=== PATIENT | female | born 1980 | race Caucasian/White ===

== ENCOUNTER 2022-09-05 22:03 | Emergency (ER) | payer MEDICARE, MEDICAID, SELFPAY ==
[2022-09-05 22:08] VITALS: BP 170/100; PULSE 132; RESP 18; TEMP 36.9; O2SAT 98
[2022-09-05 22:12] VITALS: BP 157/100; PULSE 126; RESP 16; O2SAT 99
--- NOTE | 2022-09-05 22:26 | ED.C_ITS ---
HPI - Psych General: Chief Complaint: Psychiatric Symptoms Stated Complaint: depression, MHE Time Seen by Provider: 09/05/22 22:09 Source: patient Mode of arrival: ambulatory Limitations: no limitations History of Present Illness: 41-year-old female who states that she has been in the [facility] care home for 90 days she is released today as a court order that she is to come to the ER for a psych eval and is to go to [facility]. She states that she supposed go to [facility] for alcoholism she states she used to be on medicines and she is currently out as well. She denies any suicidal or homicidal ideations at this time. Associated symptoms: Reports depression; Deny homicidal ideation or suicidal ideation Review of Systems Const: Denies: fever(s) or chills ENMT: Denies: throat pain or dental pain Card: Denies: chest pain Resp: Denies: dyspnea GI: Denies: abdominal pain, nausea, vomiting or diarrhea Musc: Denies: neck pain or back pain Skin/Breast: Denies: rash Neuro: Denies: headache(s) Psych: Reports: depression; Denies: suicidal ideation or homicidal ideation Physical Exam Const: COMMON NORMALS: no acute distress, patient oriented x3 and healthy appearing HENMT: COMMON NORMALS: normocephalic and atraumatic HEAD & SCALP: normocephalic and atraumatic Neck/C-Spine: COMMON NORMALS: full ROM Chest: COMMONS NORMALS: normal inspection of the chest Resp: COMMON NORMALS: normal respiratory effort Cardio: COMMON NORMALS: regular rate, regular rhythm and No murmurs present (Cardio) RATE: regular rate RHYTHM: regular rhythm GI: INSPECTION: Yes normal to inspection Extremity: COMMON NORMALS: normal to inspection and full ROM Neuro: COMMON NORMALS: patient oriented x3, moves all extremities and no focal motor deficits Psych: COMMON NORMALS: mental status grossly normal, Normal thought process present and cooperative THOUGHT PROCESS: Normal thought process present Skin: COMMON NORMALS: no rashes or lesions noted and no wounds GENERAL SKIN EXAM: no rashes or lesions noted Course Vital Signs: Vital signs: Vital Signs Temperature 98.4 F 09/05/22 22:08 Pulse Rate 132 H 09/05/22 22:08 Respiratory Rate 18 09/05/22 22:08 Blood Pressure 170/100 09/05/22 22:08 Pulse Oximetry 98 09/05/22 22:08 Oxygen Delivery Me thod Room Air 09/05/22 22:08 MDM - Psych Medical Decision Making Patient presents here after being released from care home she been in care home for 90 days for DUI that set her up here she is not really sure what meds she is on I had her evaluated by psychiatry who feels she is stable for discharge with plan going to the crisis stabilization unit in the morning she agrees with this plan. Medical Records I reviewed the patient's medical records. Lab Data I reviewed the patient's lab results. 09/05/22 23:00 09/05/22 23:00 Laboratory Results WBC 11.1 10^3/uL (4.0-10.0) H 09/05/22 23:00 RBC 4.24 10^6/uL (4.1-5.3) 09/05/22 23:00 Hgb 10.9 g/dL (11.5-15.3) L 09/05/22 23:00 Hct 34.4 % (37.0-47.0) L 09/05/22 23:00 MCV 81.1 fl (81-99) 09/05/22 23:00 MCH 25.7 pg (28.0-34.0) L 09/05/22 23:00 MCHC 31.7 g/dL (30.0-36.0) 09/05/22 23:00 RDW 14.9 % (12.1-15.1) 09/05/22 23:00 Plt Count 476 10^3/cmm (130-400) H 09/05/22 23:00 MPV 10.5 fL (7.4-10.4) H 09/05/22 23:00 Neut % (Auto) 67.7 % 09/05/22 23:00 Lymph % (Auto) 24.6 % 09/05/22 23:00 [place] % (Auto) 6.5 % 09/05/22 23:00 Eos % (Auto) 0.1 % 09/05/22 23:00 Baso % (Auto) 0.7 % 09/05/22 23:00 Neut # (Auto) 7.49 10^3/uL (1.8-7.7) 09/05/22 23:00 Lymph # (Auto) 2.7 10^3/uL (0.8-4.8) 09/05/22 23:00 [place] # (Auto) 0.7 10^3/uL (0.2-0.9) 09/05/22 23:00 Eos # (Auto) 0.0 10^3/uL (0.0-0.8) 09/05/22 23:00 Baso # (Auto) 0.1 10^3/uL (0.0-0.1) 09/05/22 23:00 Nucleated RBC % (auto) 0 % 09/05/22 23:00 Nucleated RBCs # 0.0 /100WBC 09/05/22 23:00 Sodium 138 mmol/L (136-145) 09/05/22 23:00 Potassium 3.9 mmol/L (3.5-5.1) 09/05/22 23:00 Chloride 104 mmol/L (98-107) 09/05/22 23:00 Carbon Dioxide 19 mmol/L (22-29) L 09/05/22 23:00 Anion Gap 18.9 (5-19) 09/05/22 23:00 BUN 10 mg/dL (6-20) 09/05/22 23:00 Creatinine 0.8 mg/dL (0.5-0.9) 09/05/22 23:00 GFR Calculation 78.3 mL/min (90-130) L 09/05/22 23:00 Glucose 141 mg/dL (65-115) H 09/05/22 23:00 Calculated Osmolality 287 mOsm/kg (285-295) 09/05/22 23:00 Calcium 8.9 mg/dL (8.5-10.5) 09/05/22 23:00 Total Bilirubin 0.3 mg/dL (0.15-1.2) 09/05/22 23:00 AST 16 U/L (0-32) 09/05/22 23:00 ALT 6 U/L (0-33) 09/05/22 23:00 Alkaline Phosphatase 80 U/L (35-105) 09/05/22 23:00 Total Protein 7.8 g/dL (6.6-8.7) 09/05/22 23:00 Albumin 4.1 g/dL (3.5-5.2) 09/05/22 23:00 Globulin 3.7 g/dL (1.3-4.6) 09/05/22 23:00 Salicylates < 0.3 mg/dL (3-10) L 09/05/22 23:00 Acetaminophen < 5.0 ug/mL (10-30) L 09/05/22 23:00 Ethyl Alcohol < 10 mg/dL (0-10) 09/05/22 23:00 Discharge Plan Discharge Patient Disposition: Home Clinical Impression: Alcohol abuse Condition: Stable Discharge Orders: Discharge ED (Routine); Ordered 09/06/22 Ordered By: Alonso Devlin Referrals: Yeni Christie MD [Primary Care Provider] - 1-3 days Discharge Diet: Advance as tolerated Discharge Activity: Resume usual activity Patient Instructions: Abuse of Alcohol (ED) Coding Level of Care Code ED Certified Home Health Aide for Cheyenne Hilario
[2022-09-05] MEDS: labetalol 5 mg/mL SDV 20mL 10 MG IVP (22:44)
[2022-09-05 22:57] VITALS: BP 160/90; PULSE 98
[2022-09-05 23:26] LABS: Basophils # 0.1 10^3/uL (0.0-0.1); Basophils % 0.7 %; Eosinophils % 0.1 %; Hematocrit 34.4 % (37.0-47.0); Hemoglobin 10.9 g/dL (11.5-15.3); Lymphocytes # 2.7 10^3/uL (0.8-4.8); Lymphocytes % 24.6 %; Mean Corpuscular HGB Conc 31.7 g/dL (30.0-36.0); Mean Corpuscular Hemoglobin 25.7 pg (28.0-34.0); Mean Corpuscular Volume 81.1 fl (81-99); Mean Platelet Volume 10.5 fL (7.4-10.4); Monocytes # 0.7 10^3/uL (0.2-0.9); Monocytes % 6.5 %; Neutrophils # 7.49 10^3/uL (1.8-7.7); Neutrophils % 67.7 %; Nucleated Red Blood Cells % 0 %; Platelet Count 476 10^3/cmm (130-400); Red Blood Count 4.24 10^6/uL (4.1-5.3); Red Cell Distribution Width 14.9 % (12.1-15.1); White Blood Count 11.1 10^3/uL (4.0-10.0)
[2022-09-05 23:42] VITALS: BP 142/109; PULSE 105; O2SAT 98
[2022-09-05 23:47] LABS: Alanine Aminotransferase 6 U/L (0-33); Albumin Level 4.1 g/dL (3.5-5.2); Alkaline Phosphatase 80 U/L (35-105); Blood Urea Nitrogen 10 mg/dL (6-20); Calcium 8.9 mg/dL (8.5-10.5); Carbon Dioxide 19 mmol/L (22-29); Chloride 104 mmol/L (98-107); Globulin 3.7 g/dL (1.3-4.6); Glomerular Filtration Rate 78.3 mL/min (90-130); Glucose 141 mg/dL (65-115); Osmolality Calculated 287 mOsm/kg (285-295); Sodium 138 mmol/L (136-145); Total Bilirubin 0.3 mg/dL (0.15-1.2); Total Protein 7.8 g/dL (6.6-8.7)
[2022-09-05] MEDS: LORazepam 2 mg/mL INJ 1 mL 1 MG IVP (23:47)
[2022-09-05 23:58] LABS: Acetaminophen < 5.0 ug/mL (10-30); Alcohol Level < 10 mg/dL (0-10); Anion Gap 18.9 (5-19); Aspartate Amino Transferase 16 U/L (0-32); Potassium 3.9 mmol/L (3.5-5.1); Salicylate < 0.3 mg/dL (3-10)
[2022-09-06 00:59] VITALS: BP 164/121; PULSE 91; RESP 16; O2SAT 95
== END 2022-09-06 01:03 | disposition home or self-care (01) ==
PROVIDERS: Emergency Provider Emergency Medicine; PCP Family Medicine
DX: F10.10 Alcohol abuse, uncomplicated (principal)
CPT/HCPCS: 80053; 80307; 85025; 96374; 96375; 99284; J2060; J3490; Q3014

== ENCOUNTER 2025-01-11 12:27 | Outpatient (CLI) | payer OTHER, MEDICAID, SELFPAY ==
--- NOTE | 2025-01-11 12:40 | MM_ITS ---
WS: [id number] BILATERAL 3D TOMOSYNTHESIS DIGITAL SCREENING MAMMOGRAPHY WITH CAD CLINICAL INFORMATION: SCREENING HISTORY: Screening mammogram. No current complaints. COMPARISON: 2010 TECHNIQUE: Bilateral CC and MLO views. FINDINGS: Scattered fibroglandular densities bilaterally. No suspicious focal mass, asymmetry, calcifications, or architectural distortion. No evidence of malignancy. A few incidental punctate calcifications. MM/MM [facility] tomosynthesis 82017 IMPRESSION: DENSITY: There are scattered areas of fibroglandular density. BI-RADS: 2 - Benign. FOLLOW UP: 1 Year Follow-up Recommend return to annual screening mammography.
== END 2025-01-11 12:28 | disposition home or self-care (01) ==
LOC: MOBLMAM 12:31
PROVIDERS: PCP Nurse Practitioner; Visit Provider Nurse Practitioner
DX: Z12.31 Encounter for screening mammogram for malignant neoplasm of breast (principal); R92.323 Mammographic fibroglandular density, bilateral breasts; R92.1 Mammographic calcification found on diagnostic imaging of breast
CPT/HCPCS: 77063; 77067